=== PATIENT | male | born 1950 | race Caucasian/White ===

== ENCOUNTER → 2018-09-27 16:45 | Outpatient (CLI) | payer OTHER ==
[2012-12-23 07:41] VITALS: BMI 28.2
[~2018-09-27 16:45] MED LIST: AMITRIPTYLINE H50 MG PO; AVODART0.5 MG PO; BACTROBAN NASAL1 GM NS; BENICAR HCT 40-1 TAB PO; CRESTOR5 MG PO; FLOMAX0.4 MG PO; LIBRAX CAPSULE1 CAP PO; LYRICA75 MG PO; NORCO 10/325 TA1 TA1 PO; PAXIL20 MG PO; PHENERGAN25 M1 PO; PRILOSEC20 MG PO; SOMA350 MG PO; TESSALON PERLE100 MG PO; VENTOLIN HFA18 GM INH; VOLTAREN100 GM TP; XANAX0.5 MG PO
== END | disposition home or self-care (01) ==
LOC: D.RAD 16:45
PROVIDERS: ATTEND Nurse Practitioner Family
DX: R05 Cough (principal)